=== PATIENT | male | born 1995 | race Caucasian/White ===

== ENCOUNTER 2018-01-25 09:31 | Emergency (ER) | payer BC ==
--- NOTE | 2018-01-25 10:08 | EDPHY ---
H & P Stated Complaint: generalized allergic rxn starting yesterday, had been taking bactrim 9 days Time Seen by Provider: 01/25/18 09:57 HPI/ROS: HPI: This is a 22-year-old male who presents with Chief Complaint: generalized allergic rxn starting yesterday, had been taking bactrim 9 days Location: Body Quality: Rash Duration: 24 hr Signs and Symptoms: no fever, no nausea, no vomiting, no diarrhea, no urinary symptoms, no chest pain, no shortness of breath, no wheezing, no cough, no sore throat, no neck stiffness, no joint pain, no swollen glands, no ear pain, no rash Timing: Worsening Severity: Moderate Context: Patient has a history of a left tendon infection of staph aureus detected on 01/15/2018 cultures sensitive to Bactrim and on day 9 as of yesterday of 14. Patient reports that on his left arm he started to develop a rash that quickly spread throughout his body covering his torso upper and lower extremities. He denies any difficulty swallowing, difficulty talking, shortness of breath, wheezing, nausea, vomiting, abdominal pain. Left wrist surgery, wash out was performed by Dr. Carmona. Patient reports that he has had 2 courses of Augmentin in October of 10 days and 14 days without improvement. Modifying Factors: None Comment: ROS: see HPI Constitutional: no fever, no chills, no weight loss Eyes: No blurred vision Respiratory: No shortness of breath, no cough Cardiovascular: No chest pain, no palpitations Gastrointestinal: No nausea, no vomiting, no diarrhea, no hematemesis, no blood in stool Genitourinary: No dysuria, no blood in urine Extremities: No myalgias, no edema Neurologic: No weakness, no numbness Skin: + rashes, no petechiae Hematologic: No bruising, no bleeding MEDICAL/SURGICAL/SOCIAL HISTORY: Medical history: Generally healthy. Does not take any regular medications. Surgical history: Left wrist surgery Social history: Never smoked. Family history noncontributory. CONSTITUTIONAL: Nontoxic-appearing adult white male, awake and alert, no obvious distress HEENT: Atraumatic and normocephalic, PERRL, EOMI. Nares patent; no rhinorrhea; no nasal mucosal edema. Tympanic membranes clear. Oropharynx clear, no exudate and moist pink mucosa. Airway patent. No lymphadenopathy. No meningismus. Cardiovascular: Normal S1/S2, regular rate, regular rhythm, without murmur rub or gallop. PULMONARY/CHEST: Symmetrical and nontender. Clear to auscultation bilaterally. Good air movement. No accessory muscle usage. ABDOMEN: Soft, nondistended, nontender, no rebound, no guarding, no peritoneal signs, no masses or organomegaly. No CVAT. EXTREMITIES: 2/2 pulses, strength 5/5, left wrist in a splint. no deformities, no clubbing, no cyanosis or edema. NEUROLOGICAL: no focal neuro deficits. GCS 15. SKIN: Warm and dry, diffuse erythematous rash covering entire body including neck, torso, upper and lower extremities; blanches with palpation. Good capillary refill. Source: Patient Exam Limitations: No limitations - Medical/Surgical History Hx Asthma: No Hx Chronic Respiratory Disease: No Hx Diabetes: No Hx Cardiac Disease: No Hx Renal Disease: No Hx Cirrhosis: No Hx Alcoholism: No Hx HIV/AIDS: No Hx Splenectomy or Spleen Trauma: No Other PMH: none - Social History Smoking Status: Never smoked Constitutional: Initial Vital Signs Temperature (C) 36.9 C 01/25/18 09:34 Heart Rate 80 01/25/18 09:34 Respiratory Rate 18 01/25/18 09:34 Blood Pressure 113/66 01/25/18 09:34 O2 Sat (%) 96 01/25/18 09:34 O2 Delivery Mode Room Air Allergies/Adverse Reactions: No Known Allergies Allergy (Unverified 01/25/18 09:33) Home Medications: Medication Instructions Recorded Bactrim DS 01/25/18 Dicloxacillin Sodium [Dynapen 500 500 mg PO Q6H 7 Days cap 01/25/18 MG (*)] predniSONE [predniSONE TAPER] 10 mg PO DAILY 6 Days ea 01/25/18 Medical Decision Making ED Course/Re-evaluation: Vital signs reviewed and stable upon arrival. No systemic signs. No signs of airway compromise/respiratory distress Reviewed right wrist culture from 01/15/2018 that grew Staph aureus 4+ resistant to clindamycin sensitive to tetracycline and cefazolin. ED decision to consult Infectious Disease, Dr. Jameson, who reviewed the chart and wound culture showing MSSA infection. Patient had been on Augmentin in the past and failed but would likely work this time. Decision was made after great discussion to start dicloxacillin 500 mg every 6 hr x 7 days. Patient is to have close follow-up with right Dr. Carmona and Dr. Woodall. This patient was seen under the supervision of my secondary supervising physician. I evaluated care for this patient independently. Discussed this patient with Dr. Carlisle. Differential Diagnosis: Differential diagnosis includes but is not limited to sulfa reaction, red man syndrome, anaphylaxis. - Data Points Medications Given: Discontinued Medications Dicloxacillin Sodium (Dynapen) 500 mg PO ONCE ONE PRN Reason: Protocol Stop: 01/25/18 10:54 Last Admin: 01/25/18 11:15 Dose: 500 mg Diphenhydramine HCl (Benadryl Injection) 25 mg IVP EDNOW ONE Stop: 01/25/18 10:10 Last Admin: 01/25/18 10:10 Dose: 25 mg Sodium Chloride (Ns) 1,000 mls @ 0 mls/hr IV EDNOW ONE; Wide Open PRN Reason: Protocol Stop: 01/25/18 10:16 Last Admin: 01/25/18 10:25 Dose: 1,000 mls Methylprednisolone Sodium Succinate (Solu-Medrol) 125 mg IVP EDNOW ONE Stop: 01/25/18 10:16 Last Admin: 01/25/18 10:23 Dose: 125 mg Departure - Departure Disposition: Home, Routine, Self-Care Clinical Impression: MSSA (methicillin susceptible Staphylococcus aureus) infection, Status post wrist surgery, Allergic drug rash due to sulfonamide Condition: Good Instructions: Acute Rash (ED), Cold Compress or Soak (ED) Additional Instructions: Take steroid taper as directed. Take Benadryl 25-50 mg every 4-6 hours as needed for itching/allergic reaction. Take Tylenol 650 mg every 4 hours and/or Ibuprofen 600 mg every 8 hours with food as needed for pain. Stop taking Bactrim. Start taking dicloxacillin 500 mg every 6 hr x7 days. Keep follow-up appointments with Dr. Carmona and Dr. Woodall. Referrals: Jazmyne Woodall MD [Medical Doctor] - As per Instructions Hood Carmona MD [Medical Doctor] - 01/27/18 Prescriptions: Dicloxacillin Sodium [Dynapen 500 MG (*)] 500 mg PO Q6H 7 Days cap predniSONE [predniSONE TAPER] 10 mg PO DAILY 6 Days ea
[2018-01-25] MEDS ORDERED: methylPREDNISolone SOD SUCC 125 MG/2 ML VIAL IVP ONE (10:15)
[2018-01-25] MEDS ORDERED: NS 1,000 ML IV ONE (10:15)
[2018-01-25] MEDS ORDERED: DICLOXACILLIN NA 500 MG CAP PO ONE (10:53)
[2018-01-25 11:35] VITALS: BP 129/73
[2018-01-25] MEDS ORDERED: RANITIDINE 50 MG/2 ML VIAL ONE (17:53)
[2018-01-25] MEDS ORDERED: methylPREDNISolone SOD SUCC 125 MG/2 ML VIAL ONE (17:53)
== END 2018-01-25 11:34 | disposition home or self-care (01) ==
DX: A49.01 Methicillin susceptible Staphylococcus aureus infection, unspecified site (principal); Z98.890 Other specified postprocedural states; E86.9 Volume depletion, unspecified
CPT/HCPCS: 96374; J1200; J2780; J2930

== ENCOUNTER 2018-04-07 22:23 | Emergency (ER) | payer BC ==
[2018-04-07 22:30] VITALS: BP 143/75
--- NOTE | 2018-04-07 22:37 | EDPHY ---
H & P Smoking Status: Never smoked Time Seen by Provider: 04/07/18 22:33 HPI/ROS: CHIEF COMPLAINT: Right 5th digit injury HISTORY OF PRESENT ILLNESS: 22-year-old [id number]-qevheold male was playing basketball shortly prior to arrival when his right 5th digit got caught on a [place]. He is now complaining of pain to the right 5th digit at the PIP joint with noted ulnar deviation. Intact skin. No paresthesia distally. PHYSICAL EXAM (Prior to examination, patient consented to physical exam, hands were washed and my usual and customary physical exam procedures followed) 1) GENERAL: Well-developed, well-nourished, alert and oriented. Appears to be in no acute distress. 2) HEAD: Normocephalic 3) HEENT: sclera anicteric 4) LUNGS: Breathing comfortably. 5) SKIN: Skin of the right hand and fingers is intact no tenting of tissue, no puncture wound. 6) MUSCULOSKELETAL: Tender to palpation proximal phalanx, PIP joint of right 5th digit. FDP FDS intact. Extensor function intact. 7) NEUROLOGIC: Full sensation two-point discrimination intact distally. (Les Coreas) Constitutional: Initial Vital Signs Temperature (C) 37.6 C 04/07/18 22:29 Heart Rate 106 H 04/07/18 22:29 Respiratory Rate 18 04/07/18 22:29 Blood Pressure 143/75 H 04/07/18 22:29 O2 Sat (%) 96 04/07/18 22:29 O2 Delivery Mode Room Air Allergies/Adverse Reactions: Sulfa (Sulfonamide Antibiotics) Allergy (Verified 04/07/18 22:31) Home Medications: Medication Instructions Recorded NK [No Known Home Meds] 04/07/18 MDM/Departure - [facility] [place] Imaging: I viewed and interpreted images myself - [facility] [place] Imaging Results: Imaging Impressions Finger X-Ray 04/07/18 22:35 Impression: Mildly displaced, obliquely-oriented fracture involving the distal component of the fifth digit proximal phalanx. Images reviewed myself (Les Coreas) Procedures: Procedure: Splint Aluminum foam and shanta-tape splint was applied by ER tool and die technician. After application of the splint I returned and re-examined the patient. The splint was adequately immobilizing the joint and distal to the splint the patient's circulation and sensation were intact. Patient shows no signs of compartment syndrome. Was given orthopedic precautions. (Les Coreas) Medications Given: Discontinued Medications Hydrocodone Bitart/Acetaminophen ([place] 5/325mg Prepack#6) 1 btl TAKEHOME EDNOW ONE Stop: 04/07/18 22:56 Last Admin: 04/07/18 23:04 Dose: 1 btl ED Course/Re-evaluation: Care of patient under supervision of secondary supervising physician Dr Valorie Garcia . I reviewed with the patient his x-rays showing a displaced , spiral fracture of the proximal phalanx of the 5th digit with more than likely extension into the PIP joint. We discussed potential complications of this including, but not limited to, posttraumatic arthritis. The patient has an existing professional relationship with Dr. Hood Carmona with whom he would like to follow up again. He has been placed into a splint, recommend elevation , usual and customary orthopedic precautions instructions provided. (Les Coreas) PHYSICIAN DOCUMENTATION: The patient was evaluated and managed by the Physician Manager Data Warehousing. My co- signature indicates that I have reviewed this chart and I agree with the findings and plan of care as documented. I am the secondary supervising physician. (Valorie Garcia) - Depart Disposition: Home, Routine, Self-Care Clinical Impression: Finger fracture, right Condition: Good Instructions: Hydrocodone/Acetaminophen (By mouth), Finger Fracture (ED) Additional Instructions: Return to the ER immediately if you experience discoloration, have worsening pain, numbness, tingling, or any other symptoms that concern you. If you received x-rays in the emergency department today, be advised, that ligamentous , tendon, muscular, and other non-bony injury cannot be fully ruled out. Try to keep your affected extremity elevated above the level of your chest, and keep cold packs on the affected area, for the next 48 hours. Referrals: Hood Carmona MD [Medical Doctor] - 2-3 days, call for appt.
[2018-04-07] MEDS ORDERED: HYDROCOD/APAP 5/325 PREPACK#6 BTL TAKEHOME ONE (22:55)
== END 2018-04-07 23:08 | disposition home or self-care (01) ==
PROC: 2W3JXYZ Immobilization of Right Finger using Other Device (ICD-10-PCS; principal; 2018-04-07)
DX: S62.616A Displaced fracture of proximal phalanx of right little finger, initial encounter for closed fracture (principal); X58.XXXA Exposure to other specified factors, initial encounter; Y93.67 Activity, basketball
CPT/HCPCS: L3925

== ENCOUNTER 2018-04-13 09:07 | Day surgery (SDC) | payer BC ==
[2018-04-13] MEDS ORDERED: LIDO/EPI 1% **Not for Epidural 20 ML MDV NB ONE (09:22)
[2018-04-13] MEDS ORDERED: ceFAZolin 2 GM/DEXTROSE 100 ML IV ONE (09:22)
[2018-04-13] MEDS ORDERED: LR 1,000 ML IV ONE (09:22)
[2018-04-13] MEDS ORDERED: BUPIVACAINE 0.5% 30 ML SDV MISC ONE (10:00)
[2018-04-13] MEDS ORDERED: BUPIVACAINE 0.5% 30 ML SDV ONE (10:16)
--- NOTE | 2018-04-13 10:38 | PDHPUP ---
History & Physical Update H&P update statement: This history and physical update is based on an assessment of the patient which was completed after admission or registration (within 24 hours), but prior to the surgery/procedure. H&P update: H&P reviewed & patient examined, no change in patient's condition since H&P completed
[2018-04-13 11:42] VITALS: BP 129/72
--- NOTE | 2018-04-15 14:48 | GOP ---
DATE OF OPERATION: 04/13/2018 SURGEON: Hood Carmona MD ANESTHESIA: Local, ulnar wrist block with 0.5% Marcaine plain and local with 1% lidocaine with epine phrine in the finger performed by me. PREOPERATIVE DIAGNOSIS: Right small finger displaced proximal phalanx fracture. POSTOPERATIVE DIAGNOSIS: Right small finger displaced proximal phalanx fracture. PROCEDURE PERFORMED: Right small finger proximal phalanx closed reduction and percutaneous pinning. FINDINGS: ESTIMATED BLOOD LOSS: Less than 5 cc. INDICATIONS: Michael Chavez is a 22-year-old male, well known to me. I performed surgery on his left wrist several days ago. He was playing basketball and jammed his finger to the ball. Seen by me in clinic. I reviewed the x-rays. X-rays showed a displaced and angulated proximal phalanx fracture. This fracture was just outside of the joint at the neck. The fracture pattern was not stable. Surgi sohail treatment was indicated. Discussed with him risks and benefits. Risks include pain, bleeding, i nfection, damage to surrounding structures, stiffness, weakness, malunion, delayed union, need for fu rther surgery, pin site infection. He understood these risks and wished to proceed. DESCRIPTION OF PROCEDURE: The patient was seen in preoperative holding area. He was given an opport unity to ask me any questions. All of his questions were answered. Consent was signed. Surgical si te was marked. I performed a local as described above. He was transferred to operative suite. Care was taken to pad all bony prominences on the gurney. Time-out was called including surgical and adin sing teams, confirming the surgical site and procedure to be performed. Right upper extremity preppe d and draped in the usual sterile fashion. Two grams of Ancef were given prior to incision. I perfo rmed a closed reduction using a pointed reduction clamp with traction. I was able to achieve a close d reduction. I then placed three 0.35 K-wires across the fracture site to stabilize the fracture radha mariajose in anatomic reduction. I checked his rotation which appeared anatomic, and checked the fracture live under fluoro and it appeared stable. The pins were then bent and cut short. Sterile dressing w as applied. A splint was applied. He tolerated procedure well, was taken to PACU in stable conditio n. POSTOP CONDITION: Stable. POSTOPERATIVE PLAN: The patient will follow up with me in 10-14 days. We will plan on removing the pins at about 4 weeks. He will see a hand therapist tomorrow to make a thermoplastic brace. /[id number]/MODL
== END 2018-04-13 12:00 | disposition home or self-care (01) ==
LOC: FSGY 09:07
PROVIDERS: ATTEND Orthopaedic Surgery Hand Surgery
PROC: 0PST34Z Reposition Right Finger Phalanx with Internal Fixation Device, Percutaneous Approach (ICD-10-PCS; principal; 2018-04-13 10:30)
DX: S62.616A Displaced fracture of proximal phalanx of right little finger, initial encounter for closed fracture (principal); W23.0XXA Caught, crushed, jammed, or pinched between moving objects, initial encounter; Y93.67 Activity, basketball
CPT/HCPCS: C1713; J0690

== ENCOUNTER → 2018-05-14 | Outpatient (CLI) | payer BC | LOC: BMCIMAGING 10:53 | PROVIDERS: ATTEND Orthopaedic Surgery Hand Surgery | DX: S62.616D Displaced fracture of proximal phalanx of right little finger, subsequent encounter for fracture with routine healing (principal) ==

== ENCOUNTER → 2018-06-11 | Outpatient (CLI) | payer BC | LOC: BMCIMAGING 15:22 | PROVIDERS: ATTEND Orthopaedic Surgery Hand Surgery | DX: S62.616D Displaced fracture of proximal phalanx of right little finger, subsequent encounter for fracture with routine healing (principal) ==